=== PATIENT | male | born 1980 | race Caucasian/White ===

== ENCOUNTER 2023-05-06 08:36 | Day surgery (SDC) | payer BC ==
[2023-05-05 14:36] LABS: BASOPHILS # (AUTO) 0.1 X10'3 (0-0.2); BASOPHILS % (AUTO) 0.6 % (0-1); EOSINOPHILS # (AUTO) 0.1 X10'3 (0-0.9); EOSINOPHILS % (AUTO) 1.7 % (0-6); LYMPHOCYTES # (AUTO) 3.1 X10'3 (1.1-4.8); LYMPHOCYTES % (AUTO) 34.9 % (21-51); MEAN CORPUSCULAR HEMOGLOBIN 32.1 PG (27.0-31.0); MEAN CORPUSCULAR HGB CONC 34.5 g/dL (33.0-36.5); MEAN CORPUSCULAR VOLUME 92.9 FL (78-98); MEAN PLATELET VOLUME 8.5 FL (7.4-10.4); MONOCYTES # (AUTO) 0.5 X10'3 (0-0.9); NEUTROPHILS % (AUTO) 56.8 % (42-75); PRE OP HEMATOCRIT 46.3 % (42.0-52.0); PRE OP PLATELET COUNT 235 X10'3 (140-440); PRE OP WHITE BLOOD COUNT 8.8 10'3 (4.8-10.8); RED BLOOD COUNT 4.98 X10'6 (4.70-6.10); RED CELL DISTRIBUTION WIDTH 13.8 % (11.5-14.5)
[2023-05-05 14:47] LABS: ALBUMIN 4.2 G/DL (3.4-5.0); ALBUMIN/GLOBULIN RATIO 1.1 (1.1-1.5); ALKALINE PHOSPHATASE 109 IU/L (46-116); BLOOD UREA NITROGEN 13 MG/DL (7-18); BUN/CREATININE RATIO 10.5 (10.0-20.0); CALCIUM 9.7 MG/DL (8.5-10.1); CHLORIDE 102 MMOL/L (99-107); CREATININE 1.24 MG/DL (0.60-1.10); PRE OP ALT 56 U/L (30-65); PRE OP ANION GAP 8 (8-16); PRE OP AST 32 U/L (10-37); PRE OP BILIRUB, TOTAL 0.7 MG/DL (0.0-1.0); PRE OP GLUCOSE 100 MG/DL (70-104); PRE OP POTASSIUM 3.5 MMOL/L (3.4-5.1); PRE OP SODIUM 139 MMOL/L (135-145); TOTAL CARBON DIOXIDE 29.2 MMOL/L (24-32); TOTAL PROTEIN 7.9 G/DL (6.4-8.2); eGFR 63 ML/MIN
[~2023-05-06] VITALS: Ht 185.4 cm; Wt 124.7 kg
[2023-05-06] VITALS (12 sets, daily range): BP systolic 108–148; BP diastolic 71–92; PULSE 70–87; RESP 9–16; TEMP 97.1; O2SAT 95–98
[~2023-05-06 08:36] MED LIST: ALLO300T8 PO; LOSA50TA64 PO; cefazolin 2gm/D5W 100mL 100 ML IV ONE; famotidine 20mg tablet PO ONE; ringers solution, lacted 1,000 ML IV SCH
[2023-05-06] MEDS ORDERED: morphine 4 MG/ML inj SYRINge IV PRN (09:10)
[2023-05-06] MEDS ORDERED: ringers solution, lacted 1,000 ML IV SCH (09:10)
[2023-05-06] MEDS ORDERED: labetalol 20mg/4ml (5mg/ml) syringe IV PRN (09:10)
[2023-05-06] MEDS ORDERED: meperidine/PF 25mg/ml syringe IV PRN ×3 (09:10)
[2023-05-06] MEDS ORDERED: ketorolac trometh. 30mg/ml inj. IV ONE (09:10)
[2023-05-06] MEDS ORDERED: acetaminophen 1,000mg/100ml IV 100 ML IV ONE (09:10)
[2023-05-06] MEDS ORDERED: morphine 2 MG/ML inj. syringe IV PRN (09:10)
[2023-05-06] MEDS ORDERED: ondansetron/PF 4mg/2ml inj IV PRN (09:10)
[2023-05-06] MEDS ORDERED: hydrALAZINE 20mg/ml inj. IV PRN (09:10)
[2023-05-06] MEDS ORDERED: proCHLORperazine 10 MG/2 ml inj IV PRN (09:10)
[2023-05-06] MEDS ORDERED: bacitracin 15gm ointment TP ONE (13:14)
[2023-05-06] MEDS ORDERED: sevoflurane 250ml liquid IH ONE (13:18)
[2023-05-06] MEDS ORDERED: midazolam 1 mg/ML 2ml injection ONE (13:25)
[2023-05-06] MEDS ORDERED: fentaNYL /PF 50mcg/ml 5ml ampule ONE (13:25)
[2023-05-06] MEDS ORDERED: ROPIVAcaine 0.5% (5mg/ml) 30ml vial ONE (13:47)
[2023-05-06] MEDS ORDERED: propofol inj 20 ML IV ONE (13:47)
[2023-05-06] MEDS ORDERED: ondansetron/PF 4mg/2ml inj ONE (13:47)
[2023-05-06] MEDS ORDERED: dexamethasone sod phosphate 4mg/ml inj. ONE (13:47)
[2023-05-06] MEDS ORDERED: LIDOcaine 2% (20mg/ml) 5ml vial ONE (13:47)
== END 2023-05-06 15:56 | disposition home or self-care (01) ==
LOC: PAS 08:36
PROVIDERS: ATTEND Podiatrist Foot & Ankle Surgery
DX: M21.862 Other specified acquired deformities of left lower leg (principal); G89.18 Other acute postprocedural pain; I10 Essential (primary) hypertension; M10.9 Gout, unspecified; Z79.899 Other long term (current) drug therapy; Z98.890 Other specified postprocedural states; Z79.82 Long term (current) use of aspirin; Z72.89 Other problems related to lifestyle
CPT/HCPCS: 27687; 36415; 64445; 64447; 80053; 82948; 85025; 93005; A6222; J0690; J1100; J2175; J2250; J2405; J2704; J2795; J3010; J3490; J7030; J7120; Z7506; Z7508; Z7512; A4215; A4618; A6253; A6449; A7000

== ENCOUNTER 2023-05-31 08:15 | Emergency (ER) | payer BC ==
[~2023-05-31] VITALS: Ht 185.4 cm; Wt 127.6 kg
[~2023-05-31 08:15] MED LIST changes: -cefazolin 2gm/D5W 100mL 100 ML IV ONE; -famotidine 20mg tablet PO ONE; -ringers solution, lacted 1,000 ML IV SCH
[2023-05-31 08:43] VITALS: BP 150/91; PULSE 79; RESP 18; TEMP 97.1; O2SAT 97
[2023-05-31] MEDS ORDERED: bacitracin 15gm ointment TP ONE (09:30)
[2023-05-31] MEDS ORDERED: SULF1TAB49 PO (09:31)
== END 2023-05-31 12:20 | disposition home or self-care (01) ==
LOC: ER 08:15
DX: L03.116 Cellulitis of left lower limb (principal)
CPT/HCPCS: 99283; A6258; A6446

== ENCOUNTER 2023-06-22 04:18 | Emergency (ER) | payer BC, OTHER ==
[~2023-06-22] VITALS: Ht 185.4 cm; Wt 125.0 kg
[2023-06-22 04:30] VITALS: BP 145/97; PULSE 76; RESP 18; TEMP 97.1; O2SAT 99
== END 2023-06-22 05:24 | disposition home or self-care (01) ==
LOC: ER 04:18
DX: R10.9 Unspecified abdominal pain (principal); R11.0 Nausea; Z79.899 Other long term (current) drug therapy
CPT/HCPCS: 99281